=== PATIENT | female | born 1965 | race Caucasian/White ===

== ENCOUNTER 2024-02-28 09:45 | Emergency (ER) | payer OTHER, SELFPAY ==
[2024-02-28 09:48] VITALS: BP 138/76
--- NOTE | 2024-02-28 10:44 | ED.GENMED ---
History of Present Illness
General
Chief Complaint: Facial Problem
Time Seen by Provider: 02/28/24 10:02
History of Present Illness
History of Present Illness:
HPI: Facial onset R>L onset yesterday. [place]. Rash is somewhat pruritic, vision change and paresthesias on R side of the face. 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 No other symptoms.
Has not taken anything. Multiple allergies to medication.
EXAM:
GENERAL: Well appearing in no distress
HEENT: Moist oral mucosa, R periorbital edema, bilateral hearing aids noted
CARDIOVASCULAR: No murmurs, normal heart rate, regular rhythm, No chest wall tenderness
PULMONARY: No respiratory distress, breath sounds are clear and equal
ABDOMEN: Soft with no peritoneal signs, no tenderness
NEUROLOGIC: Excellent strength all extremities, no coordination deficits, mild facial asymmetry w/ mild sensory deficit in the lower face with no eyelid involvement
PSYCHIATRIC: Appropriate mental status, normal insight and judgement
EXTREMITIES: Nontender, no edema, moves all extremities equally
SKIN: R facial urticaria> L, there is no clear evidence for shingles type of rash, there are no vesicles
TIME OF INITIAL ENCOUNTER: 10:40am
NUMBER AND COMPLEXITY OF PROBLEMS ADDRESSED AT THE ENCOUNTER
� Chronic conditions affecting care: M�ni�re's, asthma
� Acute Exacerbation and/or Progression of Chronic Illness: This is an acute problem
� Differential Diagnosis includes: Urticaria, Brambila's palsy, shingles
AMOUNT AND/OR COMPLEXITY OF DATA TO BE REVIEWED AND ANALYZED
� I performed an independent evaluation of and my interpretation is:
EKG:
CT:
X-rays:
Laboratory Studies:
Other:
� Review of other/old records: The patient was admitted in 2014 with asthma
� Clinical information was obtained by an independent historian: None needed
� Prescriptions/Medications Considered but not given:
� Further testing considered but not performed: Labs not indicated
RISK OF COMPLICATIONS AND/OR MORBIDITY OR MORTALITY OF PATIENT MANAGEMENT
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
� Discussion with other providers:
� Escalation of care including admission/observation vs risk of discharge considered: Urticaria noted to the right side of the face over the patient does have some facial asymmetry when she smiles. We talked about the possibly
of Brambila's palsy. Ultimately she agrees to try a dose of prednisone 50 mg now but wants to just continue at a lower dose over the next 2 days. Also placed on Valtrex for the possibly of shingles a very low suspicion for shingles.
Phy Exam
Physical Exam
Physical Exam:
See HPI
Course
Orders/Labs/Results
Orders:
Orders
02/28/24 11:01
Prednisone [Deltasone] 50 mg PO NOW STA
Valacyclovir HCl [Valtrex] 1,000 mg PO NOW STA
Vital Signs
Initial and Last Documented VS:
Initial Vital Signs
Temp Pulse BP Pulse Ox
97.8 F 67 138/76 97
02/28/24 09:48 02/28/24 09:48 02/28/24 09:48 02/28/24 09:48
Last Documented Vital Signs
Temp Pulse BP Pulse Ox
97.8 F 67 138/76 97
02/28/24 09:48 02/28/24 09:48 02/28/24 09:48 02/28/24 09:48
*Critical Care Note
Total Time (30-74mins, 75-104mins- exclusive of procedures): Not Applicable
ED Attending Note
-
Portions of this chart may have been created with voice recognition software.� Occasional wrong word or��sound alike� substitutions may have occurred due to the inherent limitations of voice recognition software.
Discharge Plan
Departure
Patient Disposition: Home (Routine Discharge)
Date of Disposition: 02/28/24
Time of Disposition: 11:01
Patient with high blood pressure during this ER visit?: Yes
Discharge Problem:
Urticaria
Instructions: Hives
Prescriptions:
New
prednisone 10 mg tablet
10 mg PO DAILY Qty: 4 0RF
valacyclovir [Valtrex] 1 gram tablet
1,000 mg PO TID Qty: 21 0RF
No Action
fluticasone propion-salmeterol [Advair Diskus] 1 DISK blister with device
1 puff inhalation DAILY
pantoprazole 40 MG tablet,delayed release (DR/EC)
40 mg PO BID
mometasone [Nasonex] 17 GM spray,non-aerosol
1 spray intranasal PRN PRN (Reason: congestion)
albuterol sulfate 1 PUFF HFA aerosol inhaler
2 puff inhalation PRN PRN (Reason: asthma)
Montelukast Sodium
10 mg PO QPM
Patient Comments:
unknown dose
Uribel
118 mg PO Q6HPRN PRN (Reason: urgency)
Tylenol :
650 mg PO PRN PRN (Reason: pain)
sennosides [senna] 1 TABLET tablet
2 tab PO BID Qty: 0 0RF
aspirin 325 MG tablet,delayed release (DR/EC)
325 mg PO DAILY Qty: 0 0RF
hydrocodone-acetaminophen 1 TABLET tablet
1 - 2 tab PO Q4HPRN PRN (Reason: pain) Qty: 90 0RF
docusate sodium 100 MG capsule
100 mg PO BID Qty: 0 0RF
gabapentin 100 MG capsule
200 mg PO TID Qty: 90 0RF
Referrals:
Trevor Dominguez MD [Family Provider] -
Activity Restrictions/Additional Instructions:
Consider Benadryl for quick-acting relief. We gave the 50 mg dose of prednisone and I am sending a prescription for 10 mg prednisone once daily for the next 4 days. Although I do not have a strong suspicion for shingles, since it is near the eye
and you do have some facial asymmetry when you smile, I am placing you on Valtrex.
Interventions
Interventions:
*Risk Screen - Suicide Last Done: 02/28/24 11:14
*General Assessment Last Done: 02/28/24 11:14
*Neglect/Abuse Screening Last Done: 02/28/24 11:14
ED- Fall Risk Assessment Last Done: 02/28/24 11:14
*ED COVID-19 Vaccine History Last Done: 02/28/24 11:14
ED- Neurological Assessment Last Done: 02/28/24 11:14
ED-Skin Assessment Last Done: 02/28/24 11:14
Discharge Date and Time
Print Language: THAI
[2024-02-28] MEDS: DELTASONE 50 MG PO (11:11)
[2024-02-28] MEDS: VALTREX 1000 MG PO (11:12)
== END 2024-02-28 11:28 | disposition home or self-care (01) ==
LOC: EMR 09:45
PROVIDERS: EMERGENCY PHYSICIAN Emergency Medicine; FAMILY PHYSICIAN Family Medicine
DX: L50.9 Urticaria, unspecified (principal)
CPT/HCPCS: 99283